=== PATIENT | female | born 1980 | race Caucasian/White ===

== ENCOUNTER → 2017-08-29 | Outpatient (CLI) | payer BC ==
[~2017-08-29] MED LIST: PREN1TAB29 PO; ZYRTEC PO
== END | disposition home or self-care (01) ==
LOC: C.PATHSPEC 17:09
PROVIDERS: ATTEND Plastic Surgery
DX: L98.9 Disorder of the skin and subcutaneous tissue, unspecified (principal)

== ENCOUNTER → 2017-11-26 | Outpatient (CLI) | payer OTHER | END | disposition home or self-care (01) | LOC: C.PAPS 16:44 | PROVIDERS: ATTEND Physician Assistant | DX: Z01.419 Encounter for gynecological examination (general) (routine) without abnormal findings (principal) ==

== ENCOUNTER 2020-03-01 18:23 | Observation (INO) ==
--- NOTE | 2020-03-01 18:34 | Emergency Department Note ---
Impression & Plan Expressive aphasia, Hypokalemia ED Provider Note NAME: VERÓNICA IVY AGE: 39 SEX: F : 1980 ARRIVES VIA: Walk-In INFORMANT: Patient, ED PROVIDER(S): Craig Duarte MD Chief Complaint: Vision changes, difficulty with speaking HPI: Patient states that she was attempting to make dinner approximate 1 hour prior to arrival when she had a black spot in the right side of her vision. The patient states that she was also having difficulty with expressing her words. Patient denies any difficult with understanding language. The patient has no prior history of the symptoms. The patient does take control. The patient denies any headaches. The patient does not use glasses or contacts. 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 The patient states that her vision changes have improved. Patient has no visual deficits. Patient does socially drink no recent alcohol use. The patient denies any tobacco or drug use. LMP 2 weeks prior. The patient denies any recent trauma or head pain. No neck pain. No chest pain or shortness of breath. Patient does not present with cough, fevers, chills, coronavirus contacts, coronavirus testing, or recent travel. ROS: See HPI for pertinent positives and negatives. A total of 10 systems were reviewed and otherwise negative. Past medical history: See below Surgical history: See below Social history: See below Physical Exam: GENERAL: NAD, non-toxic. Wearing a mask. EYE EXAM: Normal conjunctiva. PERRL, no anisocoria and EOM's grossly intact w/o pain. No visual field deficits. NECK: Supple, no nuchal rigidity, no adenopathy, non-tender. No signs of meningismus. LUNGS: Clear to auscultation. Normal chest wall mechanics. HEART: NSR, no MRG. ABDOMEN: Abdomen soft, non-tender, normo-active bowel sounds, no masses, no rebound or guarding. BACK: No CVA TTP. SKIN: No rashes and no bruising. UPPER EXTREMITIES: Upper extremities are grossly normal. LOWER EXTREMITIES: Grossly normal, no edema. NEURO EXAM: A&O x3, cranial nerves II-XII grossly intact, questionably slower deliberate speech, moves all 4 extremities on command w/o issue. Good finger to nose, no drift, no sensory deficits. Patient is able to answer simple arithmetic, state where she is, who also is in the room, as well as objects. Differential diagnoses: Infection, dehydration, metabolic abnormality, hypo/hyperglycemia, electrolyte disturbance, anemia, hypoxia, cardiac sources, intracerebral event, toxicologic, neurologic, as well as other pathologies. Course: Patient was seen and evaluated the bedside. Full history physical exam was performed. EKG: Indication: CVA work-up Sinus rhythm with short SC, heart rate of 74, normal QRS, normal axis no ST changes or T WI. Imaging Studies: Radiology results as stated below per my review in the radiologist's interpretation: HEAD & NECK CTA HISTORY: Stroke evaluation expressive aphasia TECHNIQUE: Multiaxial CT images of the head were performed following the intravenous administration of contrast to evaluate the major cerebral vessels. Multiaxial CT images of the neck were also performed following the intravenous administration of contrast to evaluate the major cervical vessels. Maximum intensity projection images were also obtained. A dose lowering technique was utilized adhering to the principles of ALARA. COMPARISON: None. FINDINGS: The major dural venous sinuses are patent. Visualized intracranial internal carotid arteries, distal vertebral arteries, and basilar artery are widely patent. 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 The aortic arch and proximal great vessels are widely patent. There is no significant stenosis, occlusion, or dissection identified within the bilateral [place] carotid, internal carotid, or vertebral arteries. Mild mucosal thickening within the maxillary sinuses. IMPRESSION: 1. No significant stenosis, occlusion, or aneurysm within the [place]. 2. No significant stenosis, occlusion, or dissection identified within the carotid or vertebral arteries. ACT 112: Negative or not required by law. Electronically signed by: Markie Morris M.D. 03/01/2020 8:02 PM Dictated: 03/01/201952 Transcribed: 03/01/201952 HEAD CT NONCONTRAST CT DOSE: HISTORY: Stroke evaluation expressive aphasia TECHNIQUE: Multiaxial CT images of the head were performed without the use of intravenous contrast. Automated exposure control was utilized for this study. A dose lowering technique was utilized adhering to the principles of ALARA. Comparison: None. Findings: Trace fluid within the left sphenoid sinus. The mastoid air cells are clear. The calvarium and skull base are intact. The ventricles and sulci are within normal limits. There is no mass, hematoma, midline shift, or acute infarct. Impression: No acute intracranial abnormality. Trace fluid within the left sphenoid sinus. ACT 112: Negative or not required by law. Electronically signed by: Markie Morris M.D. 03/01/2020 7:53 PM Dictated: 03/01/201947 Transcribed: 03/01/201947 Cardiac monitoring: An order was placed for continuous cardiac monitoring. The monitor shows a rate of 84 with sinus rhythm. MDM: Patient does present with concern for some mildly expressive aphasia. This is slightly improved over the last hour. No other concerning findings on exam at this time. CT head and CT angiographies were ordered. Patient did a bladder completed along with an EKG. Patient's EKG only shows short SC. Blood work shows a normal white count H&H. Platelet count is unremarkable. The patient's coagulation studies are unremarkable. Very mild hypokalemia. But her glucose was slightly elevated but is not fasting. Regular glucose in the lab is 96. Troponin is undetectable. Urinalysis does not show any evidence of blood. Trace leukocytes and whites but no bacteria or nitrites. The patient not complain of any urinary symptoms. Upon reassessment the patient does feel improved and as though her symptoms have resolved. I did speak the on-call neurologist Dr. Pandey who did recommend an MRI and to treat as a possible TIA with a full dose aspirin as well as an MRV given that the patient is non- control. I did update the patient and her family member at the bedside. They are in agreement plan of care. The patient has had resolution of her symptoms. I did convey to the patient that if he if she does develop worsening or returning symptoms at any time during her stay she should notify a staff member. I did speak the on-call hospitalist agreed to further evaluate treat the patient. Patient was subsequently mated to medicine service under Dr. Nj. Past Med/Surg History Medical History No significant past medical history Surgical History History of delivery History of knee surgery History of oral surgery History of tonsillectomy and adenoidectomy Hx of LASIK Family History Family/Other Breast cancer Grandfather (Paternal) Lung cancer Grandmother (Maternal) Myocardial infarction Father Prostate cancer Aunt Ovarian cancer Denies family history of Colorectal cancer Stroke Asthma Social History marital status: Current Living Situation: Spouse and Family current occupational status: employed Feels Safe at Home: Yes Smoking Status: Never smoker Hx Alcohol Use: Yes Hx Substance Use: No Allergies Allergies Allergy/AdvReac Type Severity Reaction Status Date / Time codeine AdvReac Intermediate NAUSEA AND Verified 03/01/20 21:39 VOMITING adhesive AdvReac Mild SOME Verified 03/01/20 21:39 BANDAIDS RASH [place] Allergy Intermediate PINE Uncoded 03/01/20 21:39 RESIN-RASH Home Meds Home Medications Medication Instructions Recorded Confirmed fluticasone propionate [Flonase 2 spray INTRANASAL QAM 12/17/18 03/01/20 Allergy Relief] cetirizine 10 mg capsule 10 mg PO HS cap 05/24/19 03/01/20 norethindrone-e.estradiol-iron 1 tab PO HS 03/01/20 03/01/20 [Blisovi 24 Fe] Results & Data (ED) Vital Signs Vital Signs - 24 hr 03/01/20 18:25 03/01/20 18:34 03/01/20 18:53 Temperature 36.9 C Temperature Source Oral Pulse Rate 84 85 79 Pulse Rate from SpO2 Sensor 79 Respiratory Rate 17 17 16 Respiratory Effort / Characteristics Non-Labored Spontaneous Respiratory Depth Normal Respiratory Pattern Regular Blood Pressure 156/99 H 167/103 H 150/103 H Blood Pressure Mean 118 138 110 Pulse Oximetry 97 100 Oxygen Delivery Method Room Air Room Air Sepsis Recent Fever Within 48 Hours No Sepsis New/Unexplained Change in Mental Status No Sepsis Action Taken by Nursing No Action Required 03/01/20 19:00 03/01/20 19:15 03/01/20 19:40 Temperature Temperature Source Pulse Rate 82 80 84 Pulse Rate from SpO2 Sensor 81 81 80 Respiratory Rate 18 16 15 Respiratory Effort / Characteristics Respiratory Depth Respiratory Pattern Blood Pressure 136/102 H 142/88 H 136/95 Blood Pressure Mean 105 101 106 Pulse Oximetry 100 99 100 Oxygen Delivery Method Room Air Room Air Room Air Sepsis Recent Fever Within 48 Hours Sepsis New/Unexplained Change in Mental Status Sepsis Action Taken by Nursing 03/01/20 19:45 03/01/20 20:00 03/01/20 20:15 Temperature Temperature Source Pulse Rate 77 80 80 Pulse Rate from SpO2 Sensor 78 80 83 Respiratory Rate 13 13 15 Respiratory Effort / Characteristics Respiratory Depth Respiratory Pattern Blood Pressure 127/95 127/92 128/85 Blood Pressure Mean 107 104 95 Pulse Oximetry 100 99 99 Oxygen Delivery Method Room Air Room Air Room Air Sepsis Recent Fever Within 48 Hours Sepsis New/Unexplained Change in Mental Status Sepsis Action Taken by Nursing 03/01/20 20:30 03/01/20 20:45 03/01/20 21:00 Temperature Temperature Source Pulse Rate 72 77 77 Pulse Rate from SpO2 Sensor 74 75 78 Respiratory Rate 14 14 17 Respiratory Effort / Characteristics Respiratory Depth Respiratory Pattern Blood Pressure 118/88 126/87 154/96 H Blood Pressure Mean 97 89 112 Pulse Oximetry 100 98 99 Oxygen Delivery Method Room Air Room Air Room Air Sepsis Recent Fever Within 48 Hours Sepsis New/Unexplained Change in Mental Status Sepsis Action Taken by Nursing 03/01/20 21:15 Temperature Temperature Source Pulse Rate 72 Pulse Rate from SpO2 Sensor 71 Respiratory Rate 19 Respiratory Effort / Characteristics Respiratory Depth Respiratory Pattern Blood Pressure 136/90 Blood Pressure Mean 94 Pulse Oximetry 98 Oxygen Delivery Method Room Air Sepsis Recent Fever Within 48 Hours Sepsis New/Unexplained Change in Mental Status Sepsis Action Taken by Half-Way Medications Current Medication List: was personally reviewed by me Laboratory Data Attestation: I reviewed the patient's lab results. Result diagrams: 03/01/20 18:51 03/01/20 18:51 Lab Results 03/01/20 03/01/20 03/01/20 Range/Units 18:51 18:51 18:51 WBC 8.18 (4.8-10.8) K/uL RBC 4.75 (4.2-5.4) M/uL Hgb 14.1 (12.0-16.0) g/dL Hct 39.0 (37-47) % MCV 82.1 (80-100) fL MCH 29.7 (25-34) pg MCHC 36.2 H (32-36) g/dL RDW Std Deviation 35.8 L (36.4-46.3) fL RDW Coeff of Keith 12.0 (11.5-14.5) % Plt Count 184 (130-400) K/uL MPV 10.2 (7.4-10.4) fL Immature Gran % (Auto) 0.1 % Neut % (Auto) 46.2 % Lymph % (Auto) 44.4 % [place] % (Auto) 5.1 % Eos % (Auto) 3.8 % Baso % (Auto) 0.4 % Immature Gran # (Auto) 0.01 (0.00-0.02) K/uL Neut # (Auto) 3.78 (1.4-6.5) K/uL Lymph # (Auto) 3.63 H (1.2-3.4) K/uL [place] # (Auto) 0.42 (0.11-0.59) K/uL Eos # (Auto) 0.31 (0-0.5) K/uL Baso # (Auto) 0.03 (0-0.2) K/uL PT 10.4 (9.0-12.0) Seconds INR 1.0 (0.9-1.1) APTT 22.1 (21.0-31.0) Seconds PTT Ratio 0.8 Sodium (136-145) mmol/L Potassium (3.5-5.1) mmol/L Chloride (98-107) mmol/L Carbon Dioxide (21-32) mmol/L Anion Gap (3-11) BUN (7-18) mg/dl Creatinine (0.6-1.2) mg/dl Est Cr Clr Drug Dosing ml/min Est GFR ( Amer) Est GFR (Non-Af Amer) BUN/Creatinine Ratio (10-20) Glucose (70-99) mg/dl POC Glucose (70-99) mg/dl Calcium (8.5-10.1) mg/dl Magnesium (1.8-2.4) mg/dl Total Bilirubin (0.2-1) mg/dl AST (15-37) U/L ALT (12-78) U/L Alkaline Phosphatase (45-117) U/L Troponin I (0-0.045) ng/ml Total Protein (6.4-8.2) gm/dl Albumin (3.4-5.0) gm/dl Globulin (2.5-4.0) gm/dl Albumin/Globulin Ratio (0.9-2) Urine Color Urine Appearance (Clear) Urine pH (4.5-7.5) Ur Specific [place] (1.000-1.030) Urine Protein (Negative) Urine Glucose (UA) (Negative) Urine Ketones (Negative) Urine Blood (Negative) Urine Nitrite (Negative) Urine Bilirubin (Negative) Urine Urobilinogen (Negative) Ur Leukocyte Esterase (Negative) Urine WBC (Auto) Urine RBC (Auto) U Hyaline Cast (Auto) U Epithel Cells (Auto) Urine Bacteria (Auto) Urine RBC (0-4) /hpf Urine WBC (0-5) /hpf Ur Epithelial Cells (0-5) /lpf Urine Bacteria (Negative) Blood Type B Positive Antibody Screen NEGATIVE 03/01/20 03/01/20 03/01/20 Range/Units 18:51 18:57 19:35 WBC (4.8-10.8) K/uL RBC (4.2-5.4) M/uL Hgb (12.0-16.0) g/dL Hct (37-47) % MCV (80-100) fL MCH (25-34) pg MCHC (32-36) g/dL RDW Std Deviation (36.4-46.3) fL RDW Coeff of [place] (11.5-14.5) % Plt Count (130-400) K/uL MPV (7.4-10.4) fL Immature Gran % (Auto) % Neut % (Auto) % Lymph % (Auto) % [place] % (Auto) % Eos % (Auto) % Baso % (Auto) % Immature Gran # (Auto) (0.00-0.02) K/uL Neut # (Auto) (1.4-6.5) K/uL Lymph # (Auto) (1.2-3.4) K/uL [place] # (Auto) (0.11-0.59) K/uL Eos # (Auto) (0-0.5) K/uL Baso # (Auto) (0-0.2) K/uL PT (9.0-12.0) Seconds INR (0.9-1.1) APTT (21.0-31.0) Seconds PTT Ratio Sodium 136 (136-145) mmol/L Potassium 3.3 L (3.5-5.1) mmol/L Chloride 106 (98-107) mmol/L Carbon Dioxide 23 (21-32) mmol/L Anion Gap 8.0 (3-11) BUN 12 (7-18) mg/dl Creatinine 1.01 (0.6-1.2) mg/dl Est Cr Clr Drug Dosing 65.9 ml/min Est GFR ( Amer) 82.4 Est GFR (Non-Af Amer) 71.1 BUN/Creatinine Ratio 12.3 (10-20) Glucose 96 (70-99) mg/dl POC Glucose 113 H (70-99) mg/dl Calcium 9.3 (8.5-10.1) mg/dl Magnesium 2.1 (1.8-2.4) mg/dl Total Bilirubin 0.4 (0.2-1) mg/dl AST 13 L (15-37) U/L ALT 39 (12-78) U/L Alkaline Phosphatase 45 (45-117) U/L Troponin I < 0.015 (0-0.045) ng/ml Total Protein 7.4 (6.4-8.2) gm/dl Albumin 4.2 (3.4-5.0) gm/dl Globulin 3.2 (2.5-4.0) gm/dl Albumin/Globulin Ratio 1.3 (0.9-2) Urine Color Yellow Urine Appearance Cloudy A (Clear) Urine pH 6.0 (4.5-7.5) Ur Specific [place] 1.016 (1.000-1.030) Urine Protein Negative (Negative) Urine Glucose (UA) Negative (Negative) Urine Ketones Negative (Negative) Urine Blood Negative (Negative) Urine Nitrite Negative (Negative) Urine Bilirubin Negative (Negative) Urine Urobilinogen Negative (Negative) Ur Leukocyte Esterase Trace H (Negative) Urine WBC (Auto) Not Reportable Urine RBC (Auto) Not Reportable U Hyaline Cast (Auto) Not Reportable U Epithel Cells (Auto) Not Reportable Urine Bacteria (Auto) Not Reportable Urine RBC 0-4 (0-4) /hpf Urine WBC 5-10 H (0-5) /hpf Ur Epithelial Cells 20-30 H (0-5) /lpf Urine Bacteria Negative (Negative) Blood Type Antibody Screen Administered Medications Ioversol (Optiray 320 125ml) 116 ml IV ONCE PRN PRN Reason: Interaction Checking Stop: 03/05/20 19:22 Last Admin: 03/01/20 19:23 Dose: 116 ml Documented by: [id number] Discontinued Medications Aspirin (Aspirin) 324 mg PO NOW STA Stop: 03/01/20 20:49 Last Admin: 03/01/20 20:52 Dose: 324 mg Documented by: [id number] Discharge Plan Visit Data Chief Complaint: TIA Symptoms Stated Complaint: TROUBLE SPEAKING, DIZZY ED Provider: Craig Duarte Discharge Problem: Expressive aphasia, Hypokalemia Forms Stand Alone Forms: [facility] Prescriptions Prescriptions: No Action Zyrtec 10 mg capsule 10 mg PO HS RF: 0 fluticasone propionate [Flonase Allergy Relief] 50 mcg/actuation [place],Suspension 2 spray INTRANASAL QAM RF: 0 norethindrone-e.estradiol-iron [Blisovi 24 Fe] 1 mg-20 mcg (24)/75 mg (4) tablet 1 tab PO HS RF: 0
[2020-03-01 19:03] LABS: Basophils # (auto) 0.03 K/uL (0-0.2); Basophils % (auto) 0.4 %; Eosinophils # (auto) 0.31 K/uL (0-0.5); Eosinophils % (auto) 3.8 %; Hemoglobin 14.1 g/dL (12.0-16.0); Immature Granulocytes # (auto) 0.01 K/uL (0.00-0.02); Immature Granulocytes % (auto) 0.1 %; Lymphocytes # (auto) 3.63 K/uL (1.2-3.4); Lymphocytes % (auto) 44.4 %; Mean Corpuscular Hemoglobin 29.7 pg (25-34); Mean Corpuscular Hgb Conc 36.2 g/dL (32-36); Mean Corpuscular Volume 82.1 fL (80-100); Mean Platelet Volume 10.2 fL (7.4-10.4); Monocytes # (auto) 0.42 K/uL (0.11-0.59); Monocytes % (auto) 5.1 %; Neutrophils # (auto) 3.78 K/uL (1.4-6.5); Neutrophils % (auto) 46.2 %; Platelet Count 184 K/uL (130-400); RDW Standard Deviation 35.8 fL (36.4-46.3); Red Blood Count 4.75 M/uL (4.2-5.4); White Blood Count 8.18 K/uL (4.8-10.8)
[2020-03-01 19:15] LABS: Partial Thromboplastin Ratio 0.8; Partial Thromboplastin Time 22.1 Seconds (21.0-31.0); Prothrombin Time 10.4 Seconds (9.0-12.0)
[2020-03-01 19:20] LABS: Albumin Level 4.2 gm/dl (3.4-5.0); Aspartate Aminotransferase 13 U/L (15-37); BUN Creatinine Ratio 12.3 (10-20); Blood Urea Nitrogen 12 mg/dl (7-18); Calcium 9.3 mg/dl (8.5-10.1); Carbon Dioxide 23 mmol/L (21-32); Chloride 106 mmol/L (98-107); Creatinine Clr Calc Pharmacy 65.9 ml/min; Est GFR (African American) 82.4; Est GFR (Non-African American) 71.1; Glucose 96 mg/dl (70-99); Magnesium 2.1 mg/dl (1.8-2.4); Potassium 3.3 mmol/L (3.5-5.1); Sodium 136 mmol/L (136-145)
[2020-03-01] MEDS ORDERED: OPTIRAY 320 125ml IV PRN (19:23)
[2020-03-01 19:25] LABS: Alanine Aminotransferase 39 U/L (12-78); Albumin Globulin Ratio 1.3 (0.9-2); Alkaline Phosphatase 45 U/L (45-117); Bilirubin,Total 0.4 mg/dl (0.2-1); Globulin 3.2 gm/dl (2.5-4.0); Total Protein 7.4 gm/dl (6.4-8.2); Troponin I < 0.015 ng/ml (0-0.045)
[2020-03-01 19:49] LABS: Appearance Urine Cloudy (Clear); Bilirubin Urine Negative (Negative); Blood Urine Negative (Negative); Color Urine Yellow; Glucose Urine UA Negative (Negative); Ketones Urine Negative (Negative); Leukocyte Esterase Urine Trace (Negative); Nitrite Urine Negative (Negative); Protein Urine Negative (Negative); Specific Gravity Urine 1.016 (1.000-1.030); Urobilinogen Urine Negative (Negative)
--- NOTE | 2020-03-01 19:54 | CT Scan Report ---
HEAD CT NONCONTRAST CT DOSE: HISTORY: Stroke evaluation expressive aphasia TECHNIQUE: Multiaxial CT images of the head were performed without the use of intravenous contrast. A utomated exposure control was utilized for this study. A dose lowering technique was utilized adheri ng to the principles of ALARA. Comparison: None. Findings: Trace fluid within the left sphenoid sinus. The mastoid air cells are clear. The calvarium and skull base are intact. The ventricles and sulci are within normal limits. There is no mass, hemat tung, midline shift, or acute infarct. Impression: No acute intracranial abnormality. Trace fluid within the left sphenoid sinus. ACT 112: Negative or not required by law. Electronically signed by: Markie Morris M.D. 03/01/2020 7:53 PM
--- NOTE | 2020-03-01 20:03 | CT Scan Report ---
HEAD & NECK CTA HISTORY: Stroke evaluation expressive aphasia TECHNIQUE: Multiaxial CT images of the head were performed following the intravenous administration o f contrast to evaluate the major cerebral vessels. Multiaxial CT images of the neck were also perform ed following the intravenous administration of contrast to evaluate the major cervical vessels. Maxim um intensity projection images were also obtained. A dose lowering technique was utilized adhering to the principles of ALARA. COMPARISON: None. FINDINGS: The major dural venous sinuses are patent. Visualized intracranial internal carotid arteries, distal vertebral arteries, and basilar artery are widely patent. 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 The aortic arch and proximal great vessels are widely patent. There is no significant stenosis, occ lusion, or dissection identified within the bilateral common carotid, internal carotid, or vertebral arteries. Mild mucosal thickening within the maxillary sinuses. IMPRESSION: 1. No significant stenosis, occlusion, or aneurysm within the [place]. 2. No significant stenosis, occlusion, or dissection identified within the carotid or vertebral arter ies. ACT 112: Negative or not required by law. Electronically signed by: Markie Morris M.D. 03/01/2020 8:02 PM
--- NOTE | 2020-03-01 20:03 | CT Scan Report ---
HEAD & NECK CTA HISTORY: Stroke evaluation expressive aphasia TECHNIQUE: Multiaxial CT images of the head were performed following the intravenous administration o f contrast to evaluate the major cerebral vessels. Multiaxial CT images of the neck were also perform ed following the intravenous administration of contrast to evaluate the major cervical vessels. Maxim um intensity projection images were also obtained. A dose lowering technique was utilized adhering to the principles of ALARA. COMPARISON: None. FINDINGS: The major dural venous sinuses are patent. Visualized intracranial internal carotid arteries, distal vertebral arteries, and basilar artery are widely patent. 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 The aortic arch and proximal great vessels are widely patent. There is no significant stenosis, occ lusion, or dissection identified within the bilateral common carotid, internal carotid, or vertebral arteries. Mild mucosal thickening within the maxillary sinuses. IMPRESSION: 1. No significant stenosis, occlusion, or aneurysm within the [place]. 2. No significant stenosis, occlusion, or dissection identified within the carotid or vertebral arter ies. ACT 112: Negative or not required by law. Electronically signed by: Markie Morris M.D. 03/01/2020 8:02 PM
[2020-03-01 20:26] LABS: Epithelial Cell Urine 20-30 /lpf (0-5)
[2020-03-01 20:27] LABS: Bacteria Urine Negative (Negative); RBC Urine 0-4 /hpf (0-4)
[2020-03-01] MEDS ORDERED: ASPIRIN CHEW 324 MG PO STA (20:48)
--- NOTE | 2020-03-01 21:39 | History & Physical Report ---
Date of Service March 01, 2020 Assessment & Plan (1) Anomic aphasia: Keri is a 39-year-old female with a past medical history of - induced ocular migraines and OCP use who presents with up episode of visual disturbance and anomic aphasia. Transient Anomic Aphasia with Visual Disturbance - Episode lasted approximately 5 minutes Patient with an episode of inability to word find without dysarthria and he dark spot in her right lateral peripheral vision. No flashing/zigzag lines Differential includes TIA versus atypical ocular migraine. Patient has a history of ocular migraine during but which presented with bright flashing in which did not involve speech deficits. Neuro exam including strength and sensation normal Patient on Loestrin OCP, discontinued CThead and neck CTA without acute findings Brain MRI and MRV shows anatomic variation and hypoplasia of transverse sinuses, but otherwise no acute findings or thrombosis Patient received full dose aspirin on admission Neurochecks overnight, lipids and A1c pending Neuro consult placed per stroke/TIA order set Patient at normal healthy baseline at time of visit No other chronic medical conditions DVT prophylaxis: SCDs Diet: Heart healthy CODE STATUS: Full code Disposition: Med/surgical with telemetry (2) Visual disturbance: (3) Allergic rhinitis: (4) History of dysplastic nevus: History of Present Illness Chief Complaint: Visual disturbance, word finding difficulty Primary Care Provider: LAMONTE Cardenas Keri is a 39-year-old female with a past medical history of -induced ocular migraines and OCP use who presents with up episode of visual disturbance and anomic aphasia. Micheal sun is seen at the bedside. She reports that at 530 this evening she experienced a sudden onset of a small black spot in the right most part of her vision in the right eye. She also experienced a difficulty with word finding. She notes that the black spot was not associated with blurry vision or decreased acuity, but lasted approximately 5 minutes before feeding and disappearing. She did not notice any foreign body in her eye. At the same time she experienced the inability to find words in her head and was not able to give any more than 1 word answers to questions to her family at the dinner table. She denies difficulty forming the words (dysarthria) but endorses that she could not find the words in her head (anomic aphasia). This lasted for several minutes before improving. She endorses a feeling of shakiness and dizziness during this time. She did not experience any confusion, weakness. She is experienced visual disturbance before during . During her previous 6 years ago she experienced flashing lights and was diagnosed with ocular migraine which resolved following . She has not had any other migraines or strokelike episodes. She currently takes Loestrin OCP. No family history of blood clots or strokes. She has never used tobacco products. Denies recreational drug use including cocaine. She denies chest pain, chest pressure, palpitations, lightheadedness, dizziness, syncope, presyncope. Medical history: Reviewed Surgical history: Reviewed Medications: Reviewed, patient [facility] primary patient with updated medications in EMR. Allergies: Reviewed, codeine, pine, and adhesives Family history: No family history of stroke, [place], or diabetes. History of hypertension in her mother and father. Social: Denies tobacco, alcohol, and recreational drug use. Lives in a home with her and 2 children's. No sick contacts at home. CODE STATUS: Full code Allergies Allergy/AdvReac Type Severity Reaction Status Date / Time codeine AdvReac Intermediate NAUSEA AND Verified 03/01/20 21:39 VOMITING adhesive AdvReac Mild SOME Verified 03/01/20 21:39 BANDAIDS RASH Home Medications Home Medications Medication Instructions Recorded Confirmed Type fluticasone propionate [Flonase 2 spray INTRANASAL QAM 12/17/18 03/01/20 History Allergy Relief] cetirizine 10 mg capsule 10 mg PO HS cap 05/24/19 03/01/20 History norethindrone-e.estradiol-iron 1 tab PO HS 03/01/20 03/01/20 History [Blisovi 24 Fe] Past Med/Surg History Medical History No significant past medical history Surgical History History of delivery History of knee surgery History of oral surgery History of tonsillectomy and adenoidectomy Hx of LASIK Family History Family/Other Breast cancer Grandfather (Paternal) Lung cancer Grandmother (Maternal) Myocardial infarction Father Prostate cancer Aunt Ovarian cancer Denies family history of Colorectal cancer Stroke Asthma Social History marital status: Current Living Situation: Spouse and Family current occupational status: employed Feels Safe at Home: Yes Smoking Status: Never smoker Hx Alcohol Use: Yes Hx Substance Use: No Review of Systems Review of Systems: Constitutional: Denies fever, chills, malaise Eyes: Denies double vision, eye pain. See HPI for visual disturbance Cardiovascular: Denies Chest pain, chest pressure, palpitations, extremity swelling Respiratory: Denies shortness of breath, cough, sputum production, difficulty breathing Gastrointestinal: Denies abdominal pain, nausea, vomiting, constipation, diarrhea Genitourinary: Denies pain with urination, urinary urgency, urinary frequency Musculoskeletal: Denies weakness, muscle aches/pain, joint aches/pain Integumentary:Denies rash, lesions, bruising Neurological: Denies headache, numbness, tingling, focal weakness Physical Exam Physical Exam: General: A&Ox3. NAD. Cooperative. HEENT: Atraumatic, normocephalic. Pulm: CTAB A&P. -wheezes, -rales, -rhonchi. Symmetrical chest rise. No increase work of breathing. No respiratory distress. Cardiac: RRR, -mrg. Radial pulses intact and symmetrical. Abdominal: Nontender, nondistended, soft. BS present. CN II: Visual mauro are full to confrontation. Pupils are equal and react to light and accomidation. Visual acuity grossly intact. CN III, IV, : At primary gaze, there is no eye deviation. EoM intact without nystagmus. No visual field cuts. CN V: Facial sensation is intact to soft touch in all 3 divisions bilaterally. CN VII: No facial asymmetry, full strength to eyebrow raise, smile, eye close, and cheek puff. CN VII: Hearing is grossly intact. CN IX, X: Palate elevates symmetrically. Phonation is normal without dysarthria. CN XI: Head turning intact CN XII: Tongue protrudes midline. Sensory: Light touch, pinprick intact in upper and low extremities without deficit or asymmetry. Strength: RUE: Shoulder internal rotation/external rotation, elbow flexion/extension, finger flexion/extension, diesel mechanic helper strength, interosseous 5/5 LUE: Shoulder internal rotation/external rotation, elbow flexion/extension, finger flexion/extension, diesel mechanic helper strength, interosseous 5/5 RLE: Hip flexion, knee flexion/extension, ankle plantar flexion/dorsiflexion 5/5 LLE: Hip flexion, knee flexion/extension, ankle plantar flexion/dorsiflexion 5/5 Coordination: Rapid alternating movements and fine finger movements are intact. There is no dysmetria on [id number] and [id number]. Results & Data Results & Data ([facility]) Vital Signs (Past 12 Hours) Vital Signs Temp Pulse Resp BP Pulse Ox 03/01/20 21:15 72 19 136/90 98 03/01/20 21:00 77 17 154/96 H 99 03/01/20 20:45 77 14 126/87 98 03/01/20 20:30 72 14 118/88 100 03/01/20 20:15 80 15 128/85 99 03/01/20 20:00 80 13 127/92 99 03/01/20 19:45 77 13 127/95 100 03/01/20 19:40 84 15 136/95 100 03/01/20 19:15 80 16 142/88 H 99 03/01/20 19:00 82 18 136/102 H 100 03/01/20 18:53 79 16 150/103 H 100 03/01/20 18:34 85 17 167/103 H 03/01/20 18:25 36.9 C 84 17 156/99 H 97 Supervising Physician Co-Signing Physician Notes Patient seen and examined, chart reviewed, case discussed with Dr. Savage and I agree with his assessment and plan as documented above. Briefly, patient is a 39yo C female presenting with transient episode of visual deficit, word-finding difficulty lasting approximately 5 minutes. Symptoms have since resolved completely. No prior history of the same. Patient is on OCP/Loestrin On exam she is afebrile, HTN at 155/100 otherwise stable, NAD, resting comfortably HEENT - NC/AT, PERRL, EOMI, Visual mauro full, Neck supple Heart - +S1/S2, regular, no m/r/g Lungs - CTA Abd - +BS, soft, NT/ND Ext - No edema, 2+ pulses Neuro - I was present for the resident's neurological exam - no deficits noted Labs and images reviewed/ Assessment/Plan - 39yo C female with transient visual disturbance, anomic aphasia. Symptoms have since resolved. Ddx to include complex migraine, TIA/CVA. Workup thus far unremarkable to include MRI/MRV, CT, CTA Head and Neck -Observation to medical floor -Check Lipids, AIC, PT/OT evaluation -Neurology consultation appreciated -Remainder of plan as above Resident Activity Tracking Resident Involvement: Resident Care Provided Care Provided: Adult Hospital Medicine
[2020-03-01] MEDS ORDERED: PHARMACIST DISCHARGE MED REC CONSULT PRN (23:34)
[2020-03-01] MEDS ORDERED: ONDANSETRON INJ 2 MG/ML 2 ML VIAL IV PRN (23:34)
[2020-03-01] MEDS ORDERED: ACETAMINOPHEN 325 MG TAB PO PRN (23:34)
--- NOTE | 2020-03-02 00:34 | Billing Data ---
Date of Service March 01, 2020 Coding Level of Care Code 24025 OBS Care - Level 2
[2020-03-02 06:26] LABS: Basophils # (auto) 0.02 K/uL (0-0.2); Basophils % (auto) 0.3 %; Eosinophils % (auto) 5.2 %; Hematocrit (blood only) 39.5 % (37-47); Hemoglobin 13.7 g/dL (12.0-16.0); Immature Granulocytes # (auto) 0.01 K/uL (0.00-0.02); Immature Granulocytes % (auto) 0.1 %; Lymphocytes # (auto) 3.49 K/uL (1.2-3.4); Lymphocytes % (auto) 45.6 %; Mean Corpuscular Hemoglobin 28.8 pg (25-34); Mean Corpuscular Hgb Conc 34.7 g/dL (32-36); Mean Platelet Volume 10.5 fL (7.4-10.4); Monocytes # (auto) 0.55 K/uL (0.11-0.59); Monocytes % (auto) 7.2 %; Neutrophils # (auto) 3.18 K/uL (1.4-6.5); Neutrophils % (auto) 41.6 %; Platelet Count 191 K/uL (130-400); RDW Coefficient of Variation 12.2 % (11.5-14.5); RDW Standard Deviation 36.9 fL (36.4-46.3); Red Blood Count 4.76 M/uL (4.2-5.4); White Blood Count 7.65 K/uL (4.8-10.8)
[2020-03-02 06:54] LABS: BUN Creatinine Ratio 13.1 (10-20); Calcium 8.7 mg/dl (8.5-10.1); Creatinine Clr Calc Pharmacy 72.3 ml/min; Est GFR (African American) 93.4; Est GFR (Non-African American) 80.6; Potassium 3.9 mmol/L (3.5-5.1)
--- NOTE | 2020-03-02 07:00 | Magnetic Resonance Report ---
MRI OF THE BRAIN WITHOUT CONTRAST CLINICAL HISTORY: expressive aphasia COMPARISON STUDY: Noncontrast head CT dated 03/01/2020 FINDINGS: Sagittal T1, axial diffusion, proton density and T2 weighted axial, coronal FLAIR, and axial T1-weigh tita images were acquired. No intra or extra-axial mass lesions are visualized Axial diffusion-weighted images reveal no evidence of acute or subacute infarction. There is no evidence of ventricular dilatation. Proton density T2-weighted and FLAIR images reveal no significant intraparenchymal signal abnormaliti es. There are no abnormal flow voids. There are mild inflammatory changes present within the sphenoid and maxillary sinuses. IMPRESSION: 1. No acute intracranial findings 2. No evidence of intracranial mass 3. No evidence of acute or subacute infarction ACT 112: Negative or not required by law. Electronically signed by: Víctor Moura M.D. 03/02/2020 6:59 AM
[2020-03-02 07:20] LABS: Estimated Average Glucose 91 mg/dl; Hemoglobin A1C 4.8 % (4.5-5.6)
--- NOTE | 2020-03-02 08:11 | Magnetic Resonance Report ---
MR VENOGRAM OF THE BRAIN CLINICAL HISTORY: Expressive aphasia. COMPARISON STUDY: MRI of the brain performed concurrently on 03/01/2020. CT angiogram of the brain date d 03/01/2020. TECHNIQUE: Sagittal MR venogram of the brain is performed. 3-D reformats are created and assessed. IV contrast was not administered for this examination. FINDINGS: There is no MRI evidence of dural venous sinus thrombosis. The superior sagittal sinus is p atent. There is right dominant transverse sinus drainage. The left transverse sinus is hypoplastic. T here is narrowing and irregularity of the distal right transverse sinus which is of indeterminant sig nificance. The jugular veins are patent. IMPRESSION: There is no evidence of dural venous sinus thrombosis. Dictated: 03/02/2020 7:04 AM Transcribed: 03/02/2020 7:44 AM Nisreen [id number] HERMANN_Ursula Electronically signed by: Micheal Greenfield M.D. 03/02/2020 8:09 AM
--- NOTE | 2020-03-02 09:07 | Electrocardiogram Report ---
Test Reason : Blood Pressure : / mmHG Vent. Rate : 074 BPM Atrial Rate : 074 BPM P-R Int : 100 ms QRS Dur : 090 ms QT Int : 382 ms P-R-T Axes : 074 078 056 degrees QTc Int : 424 ms Sinus rhythm with short [place] Otherwise normal ECG When compared with ECG of 17-DEC-2018 16:32, No significant change was found Confirmed by Cody Reese ([id number]) on 03/02/2020 9:06:32 AM Referred By: REFERRED SELF Confirmed By:Cody Reese
--- NOTE | 2020-03-02 10:33 | Discharge Summary ---
Date of Service March 02, 2020 Admission HPI Per Admitting Provider Keri is a 39-year-old female with a past medical history of -induced ocular migraines and OCP use who presents with up episode of visual disturbance and anomic aphasia. Mihceal sun is seen at the bedside. She reports that at 530 this evening she experienced a sudden onset of a small black spot in the right most part of her vision in the right eye. She also experienced a difficulty with word finding. She notes that the black spot was not associated with blurry vision or decreased acuity, but lasted approximately 5 minutes before feeding and disappearing. She did not notice any foreign body in her eye. At the same time she experienced the inability to find words in her head and was not able to give any more than 1 word answers to questions to her family at the dinner table. She denies difficulty forming the words (dysarthria) but endorses that she could not find the words in her head (anomic aphasia). This lasted for several minutes before improving. She endorses a feeling of shakiness and dizziness during this time. She did not experience any confusion, weakness. She is experienced visual disturbance before during . During her previous 6 years ago she experienced flashing lights and was diagnosed with ocular migraine which resolved following . She has not had any other migraines or strokelike episodes. She currently takes Loestrin OCP. No family history of blood clots or strokes. She has never used tobacco products. Denies recreational drug use including cocaine. She denies chest pain, chest pressure, palpitations, lightheadedness, dizziness, syncope, presyncope. Medical history: Reviewed Surgical history: Reviewed Medications: Reviewed, patient [facility] primary patient with updated medications in EMR. Allergies: Reviewed, codeine, pine, and adhesives Family history: No family history of stroke, [place], or diabetes. History of hypertension in her mother and father. Social: Denies tobacco, alcohol, and recreational drug use. Lives in a home with her and 2 children's. No sick contacts at home. CODE STATUS: Full code Principal Diagnosis ?tia vs migraine variant Discharge Exam Constitutional WD/WN, vitals as above Eyes PERRL, conjunctivae normal, anicteric sclerae normal visual mauro by confrontation ENMT external ear and nose normal, oropharynx normal Respiratory normal respiratory effort, lungs clear to auscultation Cardiovascular RRR, no murmur, no edema Gastrointestinal (Abdomen) normal bowel sounds, soft, nontender, no hepatosplenomegaly Skin no rashes, warm and dry Neurologic normal touch/pain/proprioception and CN's II-XI intact bilaterally; no focal motor deficits Psychiatric A+Ox3, euthymic affect Discharge Data Allergies Allergy/AdvReac Type Severity Reaction Status Date / Time codeine AdvReac Intermediate NAUSEA AND Verified 03/01/20 21:39 VOMITING adhesive AdvReac Mild SOME Verified 03/01/20 21:39 BANDAIDS RASH Consultations 03/01/20 21:01 ED Decision to Admit Stat 03/01/20 22:55 Consult Neurology Routine Ordered Studies 03/01/20 18:42 CT angio head w con Stat CT angio neck with con Stat CT head/brain wo con Stat 03/01/20 20:48 MR brain wo con Stat MR venography head wo con Stat Hospital Course (1) Anomic aphasia: Keri is a 39-year-old female with a past medical history of - induced ocular migraines and OCP use who presents with up episode of visual disturbance and anomic aphasia. The following is the medical management during stay here: Transient Anomic Aphasia with Visual Disturbance-resolved - Episode lasted approximately 5 minutes Patient with an episode of inability to word find without dysarthria and he dark spot in her right lateral peripheral vision. No flashing/zigzag lines. -- Resolved and no recurrence since initial incident -Patient has a history of ocular migraine during but which presented with bright flashing in which did not involve speech deficits. Neuro exam including strength and sensation normal Patient on Loestrin OCP, discontinued. Please discuss other options for BC moving forward CThead and neck CTA without acute findings Brain MRI and MRV shows anatomic variation and hypoplasia of transverse sinuses, but otherwise no acute findings or thrombosis Patient received full dose aspirin on admission Lipid Panel WNL besides cholesterol 219. A1C 4.9 Neuro consult recs: not clear that this is a migraine variant, could be TIA -Will start ASA 81mg daily, Atorvastatin 40 mg daily, magnesium 400mg daily -hypercoag panel started (protein c/s, factor v leiden, antiphospholipid antibodies) -pt to follow up with neuro 6-8 weeks DVT prophylaxis with SCDs. At time of d/c, pt with no other acute concerns or complaints. Total Time Total Time Spent Total Time Spent (In Minutes): 30 Discharge Plan Discharge Items Patient Disposition: Home - Self-Care Reason For Visit: TRANSIENT ANOMIC APHASIA,VISUAL DISTURBANCE,TIA? Discharge Diagnosis: possible TIA vs migraine variant Activity: Per Instructions section Non-emergency contact: Primary Care Provider Call non-emergency contact if: you have any medication questions and your symptoms worsen Follow-up/Referrals: Kate Nj CRNP [Primary Care Provider] - 03/09/20 11:00 am (Your follow up appointment is with Sheron ABURTO. If you need to change this appointment, please call the office at [phone].) Mita Pandey MD [Physician] - 06/10/20 11:30 am (A follow up appt. has been made for you with Dr. Pandey on at 11:30am. They will put you on wait list for an earlier appt.) Diet: Regular Addtl Attending Provider Instructions: You were admitted with concerns of speech and visual abnormalities. We did a stroke workup to rule out anything of major concern going on. Your brain imaging and labs were largely unremarkable. It is possible that you had a 'transient' brain attack that could explain your symptoms. Please follow the below instructions on discharge: -you will start aspirin 81 mg daily, atorvastatin 40 mg daily, magnesium 400 mg daily. You have been sent 1 month supply. Please follow up with your PCP within one week for normal hospital follow up and for additional refills. This appt will be set up for you -you will stop your Blisovi as this can help contribute to clotting which may help explain your symptoms. Please discuss with your PCP other options for control moving forward, including maybe even continuing this medication -you will follow up with neurology in 6-8 weeks . This will be set up for you Pending Studies at Discharge: No Stand-Alone Forms: Medications to Prevent Stroke, My [place], Smoking Cessation Medications and DC Order Prescriptions: New aspirin [Aspir-81] 81 mg tablet,delayed release (DR/EC) 81 mg PO DAILY Qty: 30 RF: 0 atorvastatin 40 mg tablet 40 mg PO DAILY Qty: 30 RF: 0 magnesium 200 mg tablet 400 mg PO DAILY Qty: 30 RF: 0 Continued cetirizine 10 mg capsule 10 mg PO HS RF: 0 fluticasone propionate [Flonase Allergy Relief] 50 mcg/actuation [place],Suspension 2 spray INTRANASAL QAM RF: 0 Discontinued norethindrone-e.estradiol-iron [Blisovi 24 Fe] 1 mg-20 mcg (24)/75 mg (4) tablet 1 tab PO HS RF: 0 Discharge Orders: Discharge Order (Routine); Ordered 03/02/20 Ordered By: River Wylie Admission Data Admit Date/Time: 03/01/20 22:49 Attending Provider: Sendy Saenz Admit Provider: Romaine Savage Primary Care Provider: Kate Nj Other Providers: Aline Nj Christina R. Other Interventions: Discharge Summary Assessment (RN) Last Done: 03/02/20 13:46 DC Date/Time DO NOT enter until pt leaves facility: 03/02/20 14:22 Supervising Physician Co-Signing Physician Notes Resident Physician Supervision Note: I independently interviewed and examined the patient and verified the crawford history and physical, reviewed labs and image studies, discussed the case with the resident Dr. Wylie and agree with the findings and care plan. Resident Activity Tracking Resident Involvement: Resident Care Provided Care Provided: Adult Hospital Medicine
--- NOTE | 2020-03-02 13:32 | Neurology Consultation ---
Date of Consultation March 02, 2020 Assessment & Plan (1) Visual disturbance: Keri Boston is a 39 yo woman w/ PMH of allergic rhinitis, single episode of suspected ocular migraine in second (preE ruled out) and chronic intermittent dizzy episodes who p/t [facility] on 03/01/20 after transient vision loss, word finding difficulty and dizziness. # Transient neurological symptoms: Ddx still includes migraine variant (acephalgic migraine aura) vs TIA, unlikely to represent seizure given semiology. Symptom localization: left MCA territory Stroke mechanism: migraine phenomenon vs hypercoagulable, less likely cardioembolic or cryptogenic Stroke WorkUp: - CT head: no hemorrhage or hypodensity - CTA head/neck: No LVO, high-grade stenosis or aneurysm - MRI brain: No acute or chronic infarct, Chiari malformation or mass lesion - TTE: Can obtain as an outpatient - Telemetry: Normal sinus rhythm - A1c: 4.8 - FLP: 155 - Troponin: Negative - Hypercoagulable labs: anticardiolipin Abs, Protein C and S, FV Leiden, ATIII activity; can check PT gene mutation, APC resistance as an outpatient if needed Stroke Management: - Acute treatment: ASA - Continuous cardiac monitoring, will consider Holter monitor as outpatient if telemetry here unrevealing - Vitals, Neurochecks, NIHSS per unit routine - BP parameters: SBP CAP 220, hold home anti-hypertensives for permissive HTN, IV Labetalol/Hydralazine PRN - Complete ischemic stroke workup with TTE without bubble, TSH - Consult speech, PT, OT for supportive management - Will staff counselor concerning stroke education, smoking cessation, healthy diet, physical activity, weight loss - Follow up with PCP for assistance with outpatient goals (BP <135/85, LDL <70, A1c <7) - Follow up in neurology clinic in 6-8 weeks (can be telehealth if pt requests) Secondary Stroke Prevention: - Antiplatelet: ASA 81mg po daily - Anticoagulation: Not indicated at this time - Statin: Atorvastatin 40mg daily HTN: - BP parameters, as above FEN/GI: - Diet: Cardiac HH diet and PO meds given absence of bulbar signs or symptoms - Monitor lytes and replete PRN Glucose Control: - Sliding scale insulin and accuchecks per primary team to avoid hyperglycemia Thank you for this interesting consult. Plan of care was discussed with primary team. Please call with any questions. (2) Expressive aphasia: (3) Dizziness: History of Present Illness Attending Physician: Sendy Saenz MD History of Present Illness Keri Boston is a 39 yo woman w/ PMH of allergic rhinitis, single episode of suspected ocular migraine in second (preE ruled out) and chronic intermittent dizzy episodes who p/t [facility] on 03/01/20 after transient vision loss, word finding difficulty and dizziness. [facility] ~5:30pm on 03/01/20. In the ED, patient afebrile, BP 156/99, heart rate 84, satting 97% on room air. Blood pressure continued to be elevated until approximately 715 when it dropped to 142/88 (there was one episode of hypotension overnight with blood pressure 154/96). Labs notable for WBC 8.18, hemoglobin 40.1, platelets 184, sodium 136, potassium mildly low at 3.3, creatinine 1.01, glucose 96, INR 1.0, troponin negative, LFTs within normal, UA no infection. She was given aspirin 324 prior to admission. Independent review of CT head showed no hemorrhage or hypodensity. CTA head and neck shows no LVO, high-grade stenosis or aneurysm. MRI brain shows no acute or chronic infarcts, Chiari or mass lesion. 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 On examination today, she reports that all symptoms subsided after being in the ED for a little while. Entire episode lasted about 1 to 1-1/2 hours. She denies having a history of migraines in the past, but does endorse having intermittent tension headaches with no associated nausea/vomiting/photophobia/phonophobia that respond to [id number] medications. She does endorse that she had a single episode of headache with visual changes in her second that was attributed to ocular migraine as preeclampsia was ruled out; she has never had other visual changes other than this outside of that one episode. She does endorse having a history of chronic intermittent dizziness that occurs predominantly with movement such as driving, that was similar to the dizziness that she felt yesterday. She has never had an episode of word finding difficulty or vision loss previously. She denies any recent changes to medication she endorses being on estrogen-containing control but does note that her has had a vasectomy so she does not have to continue control at this time. She denies a history of tobacco abuse, hypertension, diabetes; does endorse having history of elevated cholesterol in the past. Allergies Allergy/AdvReac Type Severity Reaction Status Date / Time codeine AdvReac Intermediate NAUSEA AND Verified 03/01/20 21:39 VOMITING adhesive AdvReac Mild SOME Verified 03/01/20 21:39 BANDAIDS RASH Home Medications Home Medications Medication Instructions Recorded Confirmed Type fluticasone propionate [Flonase 2 spray INTRANASAL QAM 12/17/18 03/01/20 History Allergy Relief] cetirizine 10 mg capsule 10 mg PO HS cap 05/24/19 03/01/20 History aspirin [Aspir-81] 81 mg PO DAILY #30 tab 03/02/20 Rx atorvastatin 40 mg PO DAILY #30 tab 03/02/20 Rx magnesium 400 mg PO DAILY #30 tab 03/02/20 Rx Patient History Medical History No significant past medical history Surgical History History of delivery History of knee surgery History of oral surgery History of tonsillectomy and adenoidectomy Hx of LASIK Family History Family/Other Breast cancer Grandfather (Paternal) Lung cancer Grandmother (Maternal) Myocardial infarction Father Prostate cancer Aunt Ovarian cancer Denies family history of Colorectal cancer Stroke Asthma Social History Preferred Language: Ukrainian Communication Ability: Effective Maintenance Analyst Required: No Beliefs That Will Affect Care: None marital status: Current Living Situation: Spouse Current Living Situation Comment: spuse and 2 children current occupational status: employed Feels Safe at Home: Yes Smoking Status: Never smoker Hx Alcohol Use: Yes Hx Substance Use: No Review of Systems Review of Systems: 14 point review of systems completed and negative except as in HPI. Exam (Neuro) Physical Exam: General Exam: GEN: NAD, sitting in bed. HEENT: No conjunctival injection, no rhinorrhea. CV: RRR, no peripheral edema PULM: Nonlabored respirations on room air. Neuro Exam: MS: Awake and Alert. Oriented to person, place, and date. Speech fluent and appropriate without dysarthria or paraphasic errors. Language intact including naming, comprehension, repetition. Cognition and memory grossly intact. Attention intact. No neglect. CN: Visual mauro full. No extinction to double simultaneous stimuli. No optic disc edema on fundoscopic exam. PERRLA OU. EOMI without nystagmus. Facial sensation intact to LT. Facial muscles full and symmetric. Hearing intact to conversation. Uvula midline with symmetric palatal elevation. Shoulder shrug normal. Tongue midline. MOTOR: Normal bulk and tone. No pronator drift. BUE strength 5/5 at deltoids, biceps, triceps, wrist flexors and extensors, and hand grasp bilaterally. BLE strength 5/5 at iliopsoas, hamstrings, quadriceps, tibialis anterior, and gastrocnemius bilaterally. REFLEXES: 2+ at biceps, triceps, brachioradialis, patella and Achilles bilaterally. Flexor plantar responses bilaterally. SENSORY: Intact to LT without extinction to double simultaneous stimuli. Vibration and pinprick intact throughout. COORDINATION: No dysmetria or ataxia on brjwgi-bi-[id number] and rkdp-dl-dris bilaterally. Normal Lavinia bilaterally. GAIT: Normal gait and arm swing. Normal Romberg. Results & Data ([facility]) Vital Signs (Past 12 Hours) Vital Signs Temp Pulse Pulse Resp BP BP Pulse Ox 03/02/20 11:19 37.3 C 74 16 114/78 98 03/02/20 08:45 78 03/02/20 07:15 36.7 C 69 16 114/77 98 03/02/20 05:23 36.8 C 82 18 103/71 96 03/02/20 04:48 72 PG Care Time/CCT Total # of Minutes Spent Total Time Spent with Patient: Total time spent is greater than 50% in coordination of care (as documented) at patient's floor/unit and/or counseling patient: Coding Level of Care Code 42179 Inpt Consult Level 5 Diagnoses Visual disturbance H53.9 Expressive aphasia R47.01 Dizziness R42
[2020-03-02] MEDS ORDERED: STROKE PATIENT DISCHARGE STA (13:45)
--- NOTE | 2020-03-02 14:05 | Pharmacy Report ---
Pharmacist Stroke Counseling - Date of Service March 02, 2020 - Scope: Pharmacy has been consulted to provide medication discharge counseling for this patient admitted with TIA as per the Pharmacist Discharge Counseling for Stroke Patients Protocol. - Medications on Discharge: Home Medications Medication Instructions Recorded Confirmed fluticasone propionate [Flonase 2 spray INTRANASAL QAM 12/17/18 03/01/20 Allergy Relief] cetirizine 10 mg capsule 10 mg PO HS cap 05/24/19 03/01/20 New Rx's Medication Instructions Recorded aspirin [Aspir-81] 81 mg PO DAILY #30 tab 03/02/20 atorvastatin 40 mg PO DAILY #30 tab 03/02/20 magnesium 400 mg PO DAILY #30 tab 03/02/20 - Action: The above medications, specifically ones for stroke treatment/prophylaxis, have been reviewed in detail with the patient and/or patient banking representative(s) prior to discharge. This includes indication, common adverse reactions, drug interactions, and medication administration. Medication counseling has been employed using the teach-back method to ensure understanding. - Outcome: The patient and/or patient banking representative(s) have demonstrated understanding of the medications. Additional comments: Patient had no additional questions. Thank you for allowing pharmacy to be involved in the care of this patient. Please call [phone] with any additional questions
[2020-03-08 19:07] LABS: Anti-Thrombin III Activity 122 % activity (80-120); B2 Glycoprotein IgA <9 SAU (<=20); B2 Glycoprotein IgG <9 SGU (<=20); B2 Glycoprotein IgM <9 SMU (<=20); Phosphatidylserine IgG <10 U/mL (<10); Phosphatidylserine IgM <25 U/mL (<25); Protein S Functional(Activity) 59 % (60-140)
== END 2020-03-02 14:22 | disposition home or self-care (01) ==
LOC: 2N 18:23 → ED 18:23 → SUATTDRO 22:49 → 2N 23:10